=== PATIENT | female | born 1950 | race Caucasian/White ===

== ENCOUNTER 2021-07-29 16:35 | Inpatient (IN) | payer MEDICARE, OTHER ==
[~2021-07-29] VITALS: Ht 152.4 cm; Wt 45.4 kg
[~2021-07-29 16:35] MED LIST: ALBU8HFA4 IH; FLUT1DIS28 IH; HYDROCHLOROTHIAZIDE PO; TIOT18CA4 IH
[2021-07-29] MEDS ORDERED: ALBUTEROL SULFATE 2.5 MG/3 ML NEBU NEB ONE (17:00)
[2021-07-29] MEDS ORDERED: IPRATROPIUM BROMIDE 0.5 MG/2.5 ML NEBU NEB ONE (17:00)
[2021-07-29 17:05] LABS: MEAN CORPUSCULAR HEMOGLOBIN 28.2 uug (24.7-32.8); MEAN CORPUSCULAR VOLUME 86.8 fL (75.5-95.3); PLATELET COUNT (AUTO) 369 K/uL (179-408)
[2021-07-29] MEDS ORDERED: ALBUTEROL SULFATE 2.5 MG/ 0.5 ML NEBU ONE (17:05)
[2021-07-29] MEDS ORDERED: IPRATROPIUM BROMIDE 0.5 MG/2.5 ML NEBU ONE (17:06)
[2021-07-29 17:13] LABS: CARBON DIOXIDE 32 mmol/L (21-32); CHLORIDE 105 mmol/L (98-107); CREATININE 1.1 mg/dL (0.6-1.3); GLUCOSE 110 mg/dL (74-106); POTASSIUM 3.6 mmol/L (3.5-5.1); UREA NITROGEN, BLOOD 23 mg/dL (7-18)
[2021-07-29 17:26] LABS: ALANINE AMINOTRANSFERASE 19 U/L (14-59); ALKALINE PHOSPHATASE 94 U/L (50-136); ASPARTATE AMINOTRANSFERASE 18 U/L (15-37); BILIRUBIN,DIRECT < 0.1 mg/dL (0.0-0.2); BILIRUBIN,TOTAL 0.2 mg/dL (0.2-1.0); TOTAL PROTEIN, SERUM 6.9 g/dL (6.4-8.2)
[2021-07-29] MEDS ORDERED: HYDROCHLOROTHIAZIDE 25 MG TABLET ONE (17:30)
[2021-07-29] MEDS ORDERED: HYDROCHLOROTHIAZIDE 25 MG TABLET PO ONE (17:30)
[2021-07-29] MEDS ORDERED: ASPIRIN 325 MG TABLET ONE (17:58)
[2021-07-29] MEDS ORDERED: LABETALOL HCL 100 MG/20 ML VIAL IV ONE (18:00)
[2021-07-29] MEDS ORDERED: SWABABLE VALVE TRANSFER SET EA MC ONE (18:00)
[2021-07-29] MEDS ORDERED: IV NORMAL SALINE 250 ML IV ONE (18:00)
[2021-07-29] MEDS ORDERED: ASPIRIN 325 MG TABLET PO ONE (18:00)
[2021-07-29] MEDS ORDERED: IOHEXOL 350 100 ML INFUS..BTL ONE (18:00)
[2021-07-29] MEDS ORDERED: LABETALOL HCL 100 MG/20 ML VIAL ONE (18:12)
[2021-07-29] MEDS ORDERED: REMEDY ESSENTIAL ZINC PASTE 113 GM TP PRN (18:30)
[2021-07-29] MEDS ORDERED: MAGNESIUM HYDROXIDE 30 ML LIQUID UDC PO PRN (18:30)
[2021-07-29] MEDS ORDERED: ACETAMINOPHEN 325 MG TABLET PO PRN (18:30)
[2021-07-29] MEDS ORDERED: ONDANSETRON 4 MG/2 ML VIAL IV PRN (18:30)
--- NOTE | 2021-07-29 19:15 | NUR ---
RECEIVED REPORT FROM JAVIER DIEZ
--- NOTE | 2021-07-29 19:30 | NUR ---
Patient is sleeping, NAD noted
--- NOTE | 2021-07-29 20:31 | NUR ---
Called for report. Mahsa DIEZ will call back
--- NOTE | 2021-07-29 20:42 | NUR ---
report given to Mahsa DIEZ
[2021-07-29] MEDS ORDERED: levoFLOXacin 500 MG/D5W 500 MG in PREMIXED 1 EACH IV SCH (21:00)
--- NOTE | 2021-07-29 21:49 | NUR ---
Pt. admitted to TELE room 308 , under care of Latosha Dorman EP SPECIALIST Belongs List completed Mahsa RN aware of patient's arrival
--- NOTE | 2021-07-29 22:00 | NUR ---
Patient Admitted to telemetry with diagnosis COPD exacerbation and NSTEMI. Patient denies any chest pain or SOB. Noted with minimal SOB at exertion when ambulating and slight wheezing at auscultation. Patient is a good historian, AAO x4. She is homeless and currently living at [facility] in [place]. Patient has a contract to live there for the next 3 months. IV to left AC in place, patent and intact. All needs attended.
[2021-07-29 22:39] VITALS: BP 143/77
[2021-07-29] MEDS: methylPREDNISolone SOD SUCC 40 MG/ML VIAL IV SCH (22:53)
[2021-07-30 00:23] VITALS: BP 137/87
[2021-07-30] MEDS ORDERED: levoFLOXacin 500 MG/D5W 100 ML ONE (01:30)
[2021-07-30] MEDS: IPRATROPIUM BROMIDE 0.5 MG/2.5 ML NEBU NEB SCH ×4 (01:38→19:34)
[2021-07-30] MEDS: ALBUTEROL SULFATE 2.5 MG/3 ML NEBU NEB SCH ×4 (01:38→19:34)
[2021-07-30 04:41] VITALS: BP 144/85
[2021-07-30] MEDS: methylPREDNISolone SOD SUCC 40 MG/ML VIAL IV SCH ×3 (06:06→20:20)
[2021-07-30 07:26] LABS: HEMATOCRIT 39.1 % (31.2-41.9); MEAN CORPUSCULAR HEMOGLOBIN 28.7 uug (24.7-32.8); MEAN CORPUSCULAR VOLUME 85.1 fL (75.5-95.3); PLATELET COUNT (AUTO) 348 K/uL (179-408)
[2021-07-30 07:38] LABS: CREATININE 1.1 mg/dL (0.6-1.3); MAGNESIUM 1.9 mg/dL (1.8-2.4); PHOSPHOROUS 3.5 mg/dL (2.5-4.9); POTASSIUM 4.9 mmol/L (3.5-5.1)
[2021-07-30] MEDS: PANTOPRAZOLE SODIUM 40 MG VIAL IV SCH (08:39)
[2021-07-30] MEDS: FLUTICASONE/VILANTEROL 1 EACH BLST.W.DEV INH SCH (08:40)
[2021-07-30] MEDS ORDERED: HYDROCHLOROTHIAZIDE PO SCH (09:00)
[2021-07-30] MEDS ORDERED: FLUTICASONE/SALMETEROL 250/50 INHALER IH SCH (09:00)
[2021-07-30] MEDS ORDERED: HYDR25TA4 PO (09:42)
[2021-07-30 11:07] VITALS: BP 129/85
[2021-07-30] MEDS: HYDROCHLOROTHIAZIDE 25 MG TABLET PO SCH (11:07)
[2021-07-30 16:00] VITALS: BP 120/80
--- NOTE | 2021-07-30 18:42 | NUR ---
patient is alert, oriented x3, verbally responsive, no sob, resp even nonlabored, no acute distress noted. no events noted during shift
[2021-07-30 19:42] VITALS: BP 133/72
--- NOTE | 2021-07-30 20:03 | NUR ---
Patient in bed alert x4.No acute distress noted. On Ra.Iv patent and intact on left AC 20g .Adm. IV ATB as ordered ,no a/r noted.Ambulates to bathroom.Voided well. Safety measures in place. Call light with in reach.
[2021-07-30] MEDS ORDERED: levoFLOXacin 750MG/D5W 150 ML IV SCH (22:00)
[2021-07-31] MEDS: IPRATROPIUM BROMIDE 0.5 MG/2.5 ML NEBU NEB SCH ×3 (01:12→13:35)
[2021-07-31] MEDS: ALBUTEROL SULFATE 2.5 MG/3 ML NEBU NEB SCH ×3 (01:13→13:35)
[2021-07-31 04:00] VITALS: BP 148/81
[2021-07-31 08:28] VITALS: BP 136/76
[2021-07-31] MEDS: HYDROCHLOROTHIAZIDE 25 MG TABLET PO SCH (08:40)
[2021-07-31] MEDS: PANTOPRAZOLE SODIUM 40 MG VIAL IV SCH (08:40)
[2021-07-31] MEDS: methylPREDNISolone SOD SUCC 40 MG/ML VIAL IV SCH (08:40)
--- NOTE | 2021-07-31 09:47 | NUR ---
awake in bed, watching tv oriented x4, no resp distress on room air. denies chest pain. iv access intact no ss of infiltration or phlebitis. no complaints call light in reach. needs attended.
[2021-07-31 11:37] VITALS: BP 137/77
[2021-07-31] MEDS: FLUTICASONE/VILANTEROL 1 EACH BLST.W.DEV INH SCH (11:42)
[2021-07-31] MEDS ORDERED: METH4TAB3 PO (11:55)
[2021-07-31] MEDS ORDERED: PANT20TA2 PO (11:55)
[2021-07-31] MEDS ORDERED: LEVO500T90 PO (11:55)
[2021-07-31] MEDS ORDERED: FLUT1BLS INH (11:55)
[2021-07-31] MEDS ORDERED: ATOR20TA PO (11:55)
--- NOTE | 2021-07-31 14:05 | NUR ---
discharge order in place patient excited to go home, does not want to wait for ss for resources. states she has them at her hotel, along with hh set up by pcp there per cm. discharge instructions relayed stated understanding. iv access removed. cm will arrange transportation.
--- NOTE | 2021-07-31 16:22 | NUR ---
discharged in stable condition with all her personal belongings.
[2021-07-31 16:23] VITALS: BP 110/70
[2021-07-31] MEDS ORDERED: GUAIFENESIN LA 600 MG TABLET.SA PO SCH (21:00)
== END 2021-07-31 15:05 | disposition home health service (06) | DRG 190 ==
LOC: ER 16:37 → TELE3 20:47 → MEDSURG3 07-30 15:19
PROVIDERS: ADMIT Nurse Practitioner Acute Care; ATTEND Nurse Practitioner Acute Care
DX: J44.1 Chronic obstructive pulmonary disease with (acute) exacerbation (principal); J96.01 Acute respiratory failure with hypoxia; I21.A1 Myocardial infarction type 2; J15.9 Unspecified bacterial pneumonia; J44.0 Chronic obstructive pulmonary disease with (acute) lower respiratory infection; Z59.00 Homelessness unspecified; Z20.822 Contact with and (suspected) exposure to COVID-19; E78.5 Hyperlipidemia, unspecified; I10 Essential (primary) hypertension; I16.0 Hypertensive urgency; M41.9 Scoliosis, unspecified; R73.9 Hyperglycemia, unspecified; Z87.891 Personal history of nicotine dependence
CPT/HCPCS: 36415; 71045; 71275; 83605; 83735; 84100; 84484; 85025; 93005; 94640; A4663; C9113; G0378; J1956; J2920; J3490; J3590; Q9967

== ENCOUNTER 2022-03-02 13:12 | Inpatient (IN) | payer MEDICARE, OTHER ==
[~2022-03-02] VITALS: Ht 152.4 cm; Wt 45.4 kg
[~2022-03-02 13:12] MED LIST changes: +ATOR20TA PO; +FLUT1BLS INH; +HYDR25TA4 PO; -HYDROCHLOROTHIAZIDE PO; +LEVO500T90 PO; +METH4TAB3 PO; +PANT20TA2 PO
[2022-03-02] MEDS ORDERED: methylPREDNISolone SOD SUCC 125 MG/2 ML VIAL IV ONE (13:30)
[2022-03-02] MEDS ORDERED: IPRATROPIUM BROMIDE 0.5 MG/2.5 ML NEBU NEB ONE (13:30)
[2022-03-02] MEDS ORDERED: ALBUTEROL SULFATE 2.5 MG/3 ML NEBU NEB ONE (13:30)
[2022-03-02 13:54] LABS: HEMATOCRIT 41.3 % (31.2-41.9); MEAN CORPUSCULAR HEMOGLOBIN 29.5 uug (24.7-32.8); MEAN CORPUSCULAR VOLUME 89.5 fL (75.5-95.3); PLATELET COUNT (AUTO) 225 K/uL (179-408)
[2022-03-02] MEDS ORDERED: methylPREDNISolone SOD SUCC 125 MG/2 ML VIAL ONE (13:59)
[2022-03-02] MEDS ORDERED: IPRATROPIUM BROMIDE 0.5 MG/2.5 ML NEBU ONE (14:00)
[2022-03-02] MEDS ORDERED: ALBUTEROL SULFATE 2.5 MG/3 ML NEBU ONE (14:00)
[2022-03-02 14:12] LABS: CARBON DIOXIDE 30 mmol/L (21-32); CHLORIDE 105 mmol/L (98-107); CREATININE 0.8 mg/dL (0.6-1.3); GLUCOSE 123 mg/dL (74-106); POTASSIUM 3.6 mmol/L (3.5-5.1); UREA NITROGEN, BLOOD 21 mg/dL (7-18)
[2022-03-02 14:25] LABS: ALANINE AMINOTRANSFERASE 14 U/L (14-59); ALKALINE PHOSPHATASE 90 U/L (50-136); ASPARTATE AMINOTRANSFERASE 12 U/L (15-37); BILIRUBIN,DIRECT 0.1 mg/dL (0.0-0.2); BILIRUBIN,TOTAL 0.2 mg/dL (0.2-1.0); TOTAL PROTEIN, SERUM 7.1 g/dL (6.4-8.2)
[2022-03-02] MEDS ORDERED: ASPIRIN 81 MG TAB.CHEW PO ONE (16:00)
[2022-03-02] MEDS ORDERED: ASPIRIN 81 MG TAB.CHEW ONE (16:17)
[2022-03-02] MEDS ORDERED: FUROSEMIDE 20 MG/2 ML VIAL IV ONE (17:00)
[2022-03-02] MEDS ORDERED: FUROSEMIDE 20 MG/2 ML VIAL ONE (17:18)
[2022-03-02] MEDS ORDERED: ALBUTEROL SULFATE 2.5 MG/ 0.5 ML NEBU NEB PRN (22:15)
[2022-03-02] MEDS ORDERED: MORPHINE SULFATE 2 MG/1 ML DISP.SYRIN IV PRN (22:15)
[2022-03-02] MEDS ORDERED: ONDANSETRON 4 MG/2 ML VIAL IV PRN (22:15)
--- NOTE | 2022-03-02 22:38 | NUR ---
Report given to Dong DIEZ tele.
[2022-03-02 23:00] VITALS: BP 149/92
[2022-03-02] MEDS ORDERED: METOPROLOL TARTRATE 25 MG TABLET PO ONE (23:00)
--- NOTE | 2022-03-02 23:00 | NUR ---
Received report from Santiago DIEZ (ER). Pt was admitted to tele @ 2300. Pt is A&O x4 and is cooperative. Pt is homeless and, when discharged, would like to go back to where her tent is. Pt is currently on Rm Air and doesn't want to be on O2 unless needed. ST on tele monitor. Pt is vaccinated for COVID-19 and Flu. Will continue to monitor.
[2022-03-03] MEDS: ATORVASTATIN 20 MG TABLET PO SCH ×2 (00:37→20:37)
[2022-03-03 01:41] VITALS: BP 142/92
[2022-03-03 06:05] LABS: HEMATOCRIT 36.7 % (31.2-41.9); MEAN CORPUSCULAR HEMOGLOBIN 28.9 uug (24.7-32.8); PLATELET COUNT (AUTO) 304 K/uL (179-408)
[2022-03-03] MEDS: PANTOPRAZOLE SODIUM 40 MG TABLET.DR PO SCH (06:15)
[2022-03-03 06:28] LABS: BILIRUBIN,TOTAL 0.1 mg/dL (0.2-1.0); MAGNESIUM 1.9 mg/dL (1.8-2.4); PHOSPHOROUS 3.8 mg/dL (2.5-4.9); POTASSIUM 3.9 mmol/L (3.5-5.1); TOTAL PROTEIN, SERUM 6.3 g/dL (6.4-8.2)
[2022-03-03 06:29] LABS: THYROID STIMULATING HORMONE 0.424 mIU/mL (0.358-3.740)
--- NOTE | 2022-03-03 06:47 | NUR ---
End of shift Note: Pt is A&Ox4 and is cooperative. Currently ST on tele. Pt on no O2. Pt is continent. Vitals are WNL. Safety measures implemented.
[2022-03-03] MEDS: ASPIRIN EC 81 MG TABLET.DR PO SCH (08:35)
[2022-03-03] MEDS: HYDROCHLOROTHIAZIDE 25 MG TABLET PO SCH (08:36)
[2022-03-03] MEDS: ENOXAPARIN SODIUM 40 MG/0.4 ML DISP.SYRIN SQ SCH (08:37)
[2022-03-03] MEDS: methylPREDNISolone SOD SUCC 40 MG/ML VIAL IV SCH ×3 (08:41→21:41)
[2022-03-03] MEDS: FLUTICASONE/VILANTEROL 1 EACH BLST.W.DEV INH SCH (09:11)
[2022-03-03] MEDS: ALBUTEROL SULFATE 2.5 MG/3 ML NEBU NEB PRN (09:21)
[2022-03-03] MEDS: IPRATROPIUM BROMIDE 0.5 MG/2.5 ML NEBU NEB PRN (09:21)
[2022-03-03 11:36] VITALS: BP 137/78
--- NOTE | 2022-03-03 13:59 | NUR ---
Social Work consult was requested on the medical floor for homeless resources. Patient is a 72-year-old female admitted to the hospital for COPD exacerbation, elevated troponin. Patient presents with anxious mood and congruent affect. Patient states she does not have a primary contact. Patient states she is currently homeless and working with Lelia Perez from [facility] [address] [facility] [place] [address] ([phone]) to get into [facility]. OSVALDO provided the patient with homeless resources for [facility] [address] [place] [address] ([phone]) and [facility] [address] [place] [address] ([phone]). OSVALDO gave resources for [facility] [address] [address]. Patient was appreciative of the resources but states she wants to find something more permanent than a retirement. Patient signed the homeless waiver, and a copy was placed in the patients chart. Patient denies a history of substance abuse. There is no toxicology report. Patient denies a history of psychiatric diagnosis. Patient denies suicidal or homicidal ideation. Patient states her plan for discharge is to continue working with [facility] and [facility] to get permanent housing at [facility]. OSVALDO referred patient to family service caseworkerJustin for possible SNF placement.
[2022-03-03 15:15] VITALS: BP 125/72
[2022-03-03] MEDS: GUAIFENESIN/DEXTROMETHORPHAN 5 ML UDC PO PRN (17:00)
--- NOTE | 2022-03-03 19:20 | NUR ---
Received Pt from day shift. Pt is A&Ox3. Denies pain at this time. Pt on Rm Air. SR-ST on tele. Pt is continent but has yet to have a bowel movement. Call light within reach. Safety measures in place. Will continue to monitor.
[2022-03-03 20:00] VITALS: BP 147/82
[2022-03-03] MEDS: DOCUSATE SODIUM 250 MG CAPSULE PO SCH (20:37)
[2022-03-04] VITALS: BP 179/91
[2022-03-04] MEDS: GUAIFENESIN/DEXTROMETHORPHAN 5 ML UDC PO PRN ×2 (00:44→11:02)
[2022-03-04] MEDS ORDERED: hydrALAZINE HCL 20 MG/1 ML VIAL IV PRN (01:00)
--- NOTE | 2022-03-04 01:12 | NUR ---
0000 vitals showed BP at 179/91. Contacted ENVIRONMENTAL COMPLIANCE INSPECTOR Dr. Rodriguez and attained an order of hydralazine 5 mg IV PRN for SBP >160. Administered hydralazine 5 mg IV at 0110. Safety measures in place. Will continue to monitor.
[2022-03-04 04:01] VITALS: BP 141/85
[2022-03-04] MEDS: methylPREDNISolone SOD SUCC 40 MG/ML VIAL IV SCH ×3 (06:04→21:17)
[2022-03-04] MEDS: PANTOPRAZOLE SODIUM 40 MG TABLET.DR PO SCH (06:04)
--- NOTE | 2022-03-04 06:30 | NUR ---
End of shift Note: Pt is A&Ox4 and is cooperative. Currently ST on tele. Pt on no O2. Pt is continent. Will inform Day shift about monitoring of BP and the usage of hydralazine for lowering elevated BP. Safety measures implemented.
[2022-03-04] MEDS: ASPIRIN EC 81 MG TABLET.DR PO SCH (08:07)
[2022-03-04] MEDS: HYDROCHLOROTHIAZIDE 25 MG TABLET PO SCH (08:07)
[2022-03-04] MEDS: ENOXAPARIN SODIUM 40 MG/0.4 ML DISP.SYRIN SQ SCH (08:08)
[2022-03-04] MEDS: FLUTICASONE/VILANTEROL 1 EACH BLST.W.DEV INH SCH (08:08)
[2022-03-04 11:29] VITALS: BP 166/95
[2022-03-04 15:18] VITALS: BP 145/83
[2022-03-04] MEDS: ACETAMINOPHEN 325 MG TABLET PO PRN (15:28)
[2022-03-04] MEDS ORDERED: levoFLOXacin 500 MG/D5W 500 MG in PREMIXED 1 EACH IV SCH (16:30)
[2022-03-04 20:17] VITALS: BP 151/93
[2022-03-04] MEDS: DOCUSATE SODIUM 250 MG CAPSULE PO SCH (21:16)
[2022-03-04] MEDS: ATORVASTATIN 20 MG TABLET PO SCH (21:16)
[2022-03-05 05:48] VITALS: BP 141/85
[2022-03-05] MEDS: methylPREDNISolone SOD SUCC 40 MG/ML VIAL IV SCH ×4 (05:49→22:30)
[2022-03-05] MEDS: PANTOPRAZOLE SODIUM 40 MG TABLET.DR PO SCH (06:24)
[2022-03-05 07:27] LABS: HEMATOCRIT 38.3 % (31.2-41.9); MEAN CORPUSCULAR HEMOGLOBIN 28.9 uug (24.7-32.8); MEAN CORPUSCULAR VOLUME 88.7 fL (75.5-95.3); PLATELET COUNT (AUTO) 294 K/uL (179-408)
[2022-03-05 07:41] LABS: CREATININE 1.3 mg/dL (0.6-1.3); PHOSPHOROUS 4.3 mg/dL (2.5-4.9); POTASSIUM 4.4 mmol/L (3.5-5.1)
[2022-03-05] MEDS: ASPIRIN EC 81 MG TABLET.DR PO SCH (08:12)
[2022-03-05] MEDS: FLUTICASONE/VILANTEROL 1 EACH BLST.W.DEV INH SCH (08:12)
[2022-03-05] MEDS: HYDROCHLOROTHIAZIDE 25 MG TABLET PO SCH (08:12)
[2022-03-05] MEDS: ENOXAPARIN SODIUM 40 MG/0.4 ML DISP.SYRIN SQ SCH (08:19)
[2022-03-05] MEDS: GUAIFENESIN/DEXTROMETHORPHAN 5 ML UDC PO PRN (10:26)
[2022-03-05] MEDS ORDERED: DILTIAZEM HCL CD 120 MG CAP.SR.24H PO SCH (11:00)
[2022-03-05 11:08] VITALS: BP 153/86
[2022-03-05] MEDS: ACETAMINOPHEN 325 MG TABLET PO PRN ×2 (15:08→20:36)
[2022-03-05] MEDS ORDERED: LEVOFLOXACIN/D5W 250 MG in PREMIX 1 EA IV SCH (16:00)
[2022-03-05 16:41] VITALS: BP 146/91
[2022-03-05] MEDS ORDERED: SIMETHICONE 80 MG TAB.CHEW PO PRN (16:45)
[2022-03-05 20:33] VITALS: BP 151/84
[2022-03-05] MEDS: ATORVASTATIN 20 MG TABLET PO SCH (20:36)
[2022-03-05] MEDS: DOCUSATE SODIUM 250 MG CAPSULE PO SCH (20:36)
[2022-03-05] MEDS: ALBUTEROL SULFATE 2.5 MG/3 ML NEBU NEB PRN (21:33)
[2022-03-05] MEDS: IPRATROPIUM BROMIDE 0.5 MG/2.5 ML NEBU NEB PRN (21:33)
[2022-03-06 04:47] VITALS: BP 155/83
[2022-03-06] MEDS: methylPREDNISolone SOD SUCC 40 MG/ML VIAL IV SCH ×2 (05:12→13:18)
[2022-03-06] MEDS: PANTOPRAZOLE SODIUM 40 MG TABLET.DR PO SCH (06:24)
[2022-03-06] MEDS: ASPIRIN EC 81 MG TABLET.DR PO SCH (08:04)
[2022-03-06] MEDS: FLUTICASONE/VILANTEROL 1 EACH BLST.W.DEV INH SCH (08:05)
[2022-03-06] MEDS: ENOXAPARIN SODIUM 40 MG/0.4 ML DISP.SYRIN SQ SCH (08:05)
[2022-03-06 08:23] VITALS: BP 145/91
[2022-03-06] MEDS ORDERED: DILTIAZEM HCL CD 180 MG CAP.SR.24H PO SCH (09:00)
[2022-03-06] MEDS ORDERED: DILT180C66 PO (12:43)
[2022-03-06] MEDS ORDERED: LEVO500T90 PO (12:43)
[2022-03-06] MEDS ORDERED: DOCU250C14 PO (12:43)
[2022-03-06] MEDS ORDERED: METH4TAB3 PO (12:43)
[2022-03-06] MEDS ORDERED: GUAI5SYR PO (12:43)
[2022-03-06] MEDS ORDERED: MULT-594 PO (12:43)
[2022-03-06] MEDS ORDERED: ALBU2.5V7 NEB (12:43)
[2022-03-06] MEDS ORDERED: SIME80TA16 PO (12:43)
[2022-03-06] MEDS ORDERED: ASPI-618 PO (12:43)
[2022-03-06 13:07] LABS: *BILIRUBIN,URIN NEGATIVE (NEGATIVE); *BLOOD, URINE NEGATIVE (NEGATIVE); *CLARITY,URINE CLEAR (CLEAR); *COLOR,URINE YELLOW (YELLOW); *KETONES,URINE NEGATIVE (NEGATIVE); *UROBILINOGEN,URINE 0.2 E.U./dl (NORMAL); LEUKOCYTE ESTERASE ,URINE TRACE (NEGATIVE); NITRITE, URINE NEGATIVE (NEGATIVE); UGLUCOSE NEGATIVE (NEGATIVE)
--- NOTE | 2022-03-06 14:33 | NUR ---
dc orders received noted and carried out.dc heplock per md orders.dc instruction and rn report given to the [facility] pt left the facility via ambulances in stable condition
[2022-03-06 18:38] LABS: *CREATININE,URINE 18.2 mg/dL (30-125); *URINE TOTAL PROTEIN RANDOM < 6.0 mg/dL (<150/24HR)
[2022-03-06 19:23] LABS: RBC,URINE 0-3 /HPF (0-3)
[2022-03-06 19:24] LABS: BACTERIA,URINE NONE SEEN /HPF (NONE SEEN); SQUAMOUS EPITHELIAL CELL,UR NONE SEEN /HPF (NONE SEEN)
== END 2022-03-06 14:40 | DRG 190 ==
LOC: ER 13:12 → TELE3 22:41 → MEDSURG3 03-06 08:30
PROVIDERS: ADMIT Internal Medicine; ATTEND Internal Medicine
DX: J44.1 Chronic obstructive pulmonary disease with (acute) exacerbation (principal); I21.A1 Myocardial infarction type 2; J96.01 Acute respiratory failure with hypoxia; N17.0 Acute kidney failure with tubular necrosis; J44.0 Chronic obstructive pulmonary disease with (acute) lower respiratory infection; E78.5 Hyperlipidemia, unspecified; I10 Essential (primary) hypertension; I70.0 Atherosclerosis of aorta; J20.9 Acute bronchitis, unspecified; I25.2 Old myocardial infarction; I25.10 Atherosclerotic heart disease of native coronary artery without angina pectoris; Z87.01 Personal history of pneumonia (recurrent); Z87.891 Personal history of nicotine dependence; Z59.00 Homelessness unspecified; K21.9 Gastro-esophageal reflux disease without esophagitis; R73.9 Hyperglycemia, unspecified; L98.8 Other specified disorders of the skin and subcutaneous tissue; J98.4 Other disorders of lung; L98.9 Disorder of the skin and subcutaneous tissue, unspecified
CPT/HCPCS: 36415; 71045; 83735; 84100; 84156; 84300; 84443; 84484; 85025; 87400; 93005; 94640; 94664; A4663; G0378; J0360; J1650; J1940; J1956; J2405; J2920; J2930; J3590

== ENCOUNTER 2022-04-25 13:20 | Inpatient (IN) | payer MEDICARE, OTHER ==
[~2022-04-25] VITALS: Ht 160 cm; Wt 59.0 kg
[~2022-04-25 13:20] MED LIST changes: +ALBU2.5V7 NEB; +ASPI-618 PO; +DILT180C66 PO; +DOCU250C14 PO; -FLUT1DIS28 IH; +GUAI5SYR PO; -HYDR25TA4 PO; +MULT-594 PO; +SIME80TA16 PO; -TIOT18CA4 IH
[2022-04-25] MEDS ORDERED: BOOST (13:34)
[2022-04-25] MEDS ORDERED: ACET-2154 PO (13:34)
[2022-04-25] MEDS ORDERED: ATOR20TA PO (13:34)
[2022-04-25] MEDS ORDERED: AZIT250T13 PO (13:34)
[2022-04-25] MEDS ORDERED: ASPI81TA31 PO (13:34)
[2022-04-25] MEDS ORDERED: FEXO-25 PO (13:34)
[2022-04-25] MEDS ORDERED: CEFTRIAXONE /D5W 50ML IVPB **ER PYXIS IV ONE (13:42)
[2022-04-25] MEDS ORDERED: CEFTRIAXONE 1 G in IV DEXTROSE 5% 50 ML IV ONE (13:45)
[2022-04-25] MEDS ORDERED: IV NORMAL SALINE 500 ML BAG IV ONE (13:45)
[2022-04-25] MEDS ORDERED: ALBUTEROL SULFATE 2.5 MG/3 ML NEBU NEB ONE (13:45)
[2022-04-25] MEDS ORDERED: IPRATROPIUM BROMIDE 0.5 MG/2.5 ML NEBU NEB ONE (13:45)
[2022-04-25] MEDS ORDERED: AZITHROMYCIN IV 500 MG in IV DEXTROSE 5% 250 ML IV ONE (13:45)
[2022-04-25] MEDS ORDERED: ALBUTEROL SULFATE 2.5 MG/3 ML NEBU ONE (14:07)
[2022-04-25] MEDS ORDERED: IPRATROPIUM BROMIDE 0.5 MG/2.5 ML NEBU ONE (14:07)
[2022-04-25 14:16] LABS: HEMATOCRIT 38.3 % (31.2-41.9); MEAN CORPUSCULAR HEMOGLOBIN 28.7 uug (24.7-32.8); MEAN CORPUSCULAR VOLUME 89.4 fL (75.5-95.3); PLATELET COUNT (AUTO) 261 K/uL (179-408)
[2022-04-25 14:24] LABS: ABG BASE EXCESS 2.6 mmol/L; ABG HCO3 27.5 mmol/L; ABG PCO2 43.5 mmHg (35.0-45.0); ABG PH 7.418 (7.350-7.450); ABG PO2 74.3 mmHg (75.0-100.0); ABG SITE LEFT BRACHIAL; COHb 0.5 % (0.5-1.5); MetHb 0.1 % (0.0-1.5); O2Hb 94.7 % (94.0-97.0); VENT MODE Nasal Cannula
[2022-04-25] MEDS ORDERED: AZITHROMYCIN 500MG/ D5W 250ML IVPB **ER PYXIS ONLY IV ONE (14:28)
[2022-04-25 14:31] LABS: CARBON DIOXIDE 33 mmol/L (21-32); CHLORIDE 104 mmol/L (98-107); CREATININE 0.8 mg/dL (0.6-1.3); GLUCOSE 96 mg/dL (74-106); POTASSIUM 4.4 mmol/L (3.5-5.1); UREA NITROGEN, BLOOD 27 mg/dL (7-18)
[2022-04-25] MEDS ORDERED: MORPHINE SULFATE 2 MG/1 ML DISP.SYRIN IVP PRN (16:45)
[2022-04-25] MEDS ORDERED: ONDANSETRON 4 MG/2 ML VIAL IV PRN (16:45)
[2022-04-25] MEDS ORDERED: ACETAMINOPHEN 325 MG TABLET PO PRN (16:45)
[2022-04-25] MEDS ORDERED: hydrALAZINE HCL 20 MG/1 ML VIAL IV PRN (16:45)
[2022-04-25] MEDS ORDERED: ALBUTEROL SULFATE 8 GM HFA.AER.AD IH PRN (16:45)
--- NOTE | 2022-04-25 17:12 | NUR ---
Room assignment 309
--- NOTE | 2022-04-25 17:23 | NUR ---
Attempted to give report to RN. Stated that he is busy passing meds.
--- NOTE | 2022-04-25 17:31 | NUR ---
Patient eating dinner. No complaints at this time. Will continue to monitor
--- NOTE | 2022-04-25 17:55 | NUR ---
Gave report to RG Quiroga
[2022-04-25] MEDS ORDERED: ASPIRIN 81 MG TAB.CHEW PO ONE (18:30)
[2022-04-25] MEDS ORDERED: ALBUTEROL SULFATE 2.5 MG/3 ML NEBU NEB PRN (18:45)
--- NOTE | 2022-04-25 18:59 | NUR ---
Patient brought to room 309 accompanied by RN via bhargavi.
[2022-04-25 19:26] VITALS: BP 150/70
--- NOTE | 2022-04-25 19:30 | NUR ---
Received patient from ER via gurney, alert and oriented x4. In no acute distress. Sinus rhythm on tele HR 70. RAC IV access intact and patent. Routine admission care rendered, oriented to room, TV, BR and call light. Care plan initiated. Needs assessed and attended to.
[2022-04-25 20:00] VITALS: BP 150/77
[2022-04-25] MEDS ORDERED: CEFEPIME HCL 2 G in IV DEXTROSE 5% 100 ML IV SCH (21:00)
[2022-04-25] MEDS ORDERED: CEFEPIME HCL 1 G VIAL ONE (21:00)
[2022-04-25] MEDS: DOCUSATE SODIUM 250 MG CAPSULE PO SCH (21:04)
[2022-04-25] MEDS: HEPARIN SODIUM,PORCINE 5,000 UNITS/ML VIAL SQ SCH (21:05)
[2022-04-25] MEDS: GUAIFENESIN/DEXTROMETHORPHAN TAB.SR.12H PO SCH (21:45)
[2022-04-25] MEDS: methylPREDNISolone SOD SUCC 40 MG/ML VIAL IV SCH ×2 (21:56→22:00)
--- NOTE | 2022-04-25 21:56 | NUR ---
Solu-medrol administered
[2022-04-25] MEDS ORDERED: CEFEPIME HCL 1 G in IV DEXTROSE 5% 50 ML IV SCH (22:00)
[2022-04-25] MEDS ORDERED: GUAIFENESIN LA 600 MG TABLET.SA PO ONE (22:43)
[2022-04-26] VITALS: BP 144/79
[2022-04-26] MEDS ORDERED: IPRATROPIUM BROMIDE 0.5 MG/2.5 ML NEBU NEB SCH (01:30)
[2022-04-26 04:00] VITALS: BP 132/72
[2022-04-26] MEDS: methylPREDNISolone SOD SUCC 40 MG/ML VIAL IV SCH ×3 (06:32→23:13)
[2022-04-26] MEDS: PANTOPRAZOLE SODIUM 40 MG TABLET.DR PO SCH (06:32)
[2022-04-26 07:05] LABS: HEMATOCRIT 40.2 % (31.2-41.9); MEAN CORPUSCULAR HEMOGLOBIN 28.8 uug (24.7-32.8); MEAN CORPUSCULAR VOLUME 88.8 fL (75.5-95.3); PLATELET COUNT (AUTO) 263 K/uL (179-408)
--- NOTE | 2022-04-26 07:20 | NUR ---
RECEIVED PATIENT IN BED AWAKE ALERT AND ORIENTED DENIES PAIN OR DISCOMFORTS TELE IS SR AT THIS TIME.ON O2 AT 2L/M WITH NO SOB AT THIS TIME CALL LIGHTS AND PERSONAL BELONGINGS ARE WITHIN EASY REACH AT THIS TIME WILL CONTINUE TO OBSERVE.
[2022-04-26 07:25] LABS: BILIRUBIN,TOTAL 0.3 mg/dL (0.2-1.0); CREATININE 0.9 mg/dL (0.6-1.3); PHOSPHOROUS 4.3 mg/dL (2.5-4.9); POTASSIUM 4.4 mmol/L (3.5-5.1); TOTAL PROTEIN, SERUM 6.9 g/dL (6.4-8.2)
[2022-04-26] MEDS: IPRATROPIUM BROMIDE 0.5 MG/2.5 ML NEBU NEB SCH ×5 (07:32→20:00)
[2022-04-26] MEDS ORDERED: Medication Not On Formulary EA (Pantoprazole Sodium (Protonix) 1 TAB) PO SCH (09:00)
[2022-04-26] MEDS: HEPARIN SODIUM,PORCINE 5,000 UNITS/ML VIAL SQ SCH ×2 (09:09→20:25)
[2022-04-26] MEDS: ASPIRIN 81 MG TAB.CHEW PO SCH (09:32)
[2022-04-26] MEDS: DILTIAZEM HCL CD 180 MG CAP.SR.24H PO SCH (09:32)
[2022-04-26] MEDS: FLUTICASONE/VILANTEROL 1 EACH BLST.W.DEV INH SCH (09:41)
[2022-04-26] MEDS: GUAIFENESIN/DEXTROMETHORPHAN TAB.SR.12H PO SCH ×2 (09:44→21:29)
[2022-04-26 11:37] VITALS: BP 133/75
--- NOTE | 2022-04-26 15:00 | NUR ---
RESTING IN BED TOLERATED HAND HELD NEBULIZER ORDERED IV HEPLOCK RIGHT ANTECUBITAL IS VERY POSITIONAL OFFERED TO CHANGE TO A NEW ONE BUT PATIENT ADAMANTLY REFUSED STATED DOES NOT LIKE NEEDLES WILL CONTINUE TO OBSERVE.
[2022-04-26 16:00] VITALS: BP 127/72
--- NOTE | 2022-04-26 18:12 | NUR ---
PATIENT IS RESTING WITH O2 AT 2L/M BY NASAL CANULA WITH NO SOB NOT IN DISTRESS WILL CONTINUE TO OBSERVE.
[2022-04-26 20:00] VITALS: BP 142/75
[2022-04-26] MEDS: ATORVASTATIN 20 MG TABLET PO SCH (20:24)
[2022-04-26] MEDS: DOCUSATE SODIUM 250 MG CAPSULE PO SCH (20:24)
[2022-04-27] VITALS: BP 135/76
[2022-04-27] MEDS: IPRATROPIUM BROMIDE 0.5 MG/2.5 ML NEBU NEB SCH ×4 (00:49→19:13)
[2022-04-27 04:00] VITALS: BP 120/60
[2022-04-27] MEDS: methylPREDNISolone SOD SUCC 40 MG/ML VIAL IV SCH ×3 (06:40→21:35)
[2022-04-27] MEDS: PANTOPRAZOLE SODIUM 40 MG TABLET.DR PO SCH (06:40)
--- NOTE | 2022-04-27 07:08 | NUR ---
Patient slept well and remained stable the whole shift.
[2022-04-27] MEDS: DILTIAZEM HCL CD 180 MG CAP.SR.24H PO SCH (08:28)
[2022-04-27] MEDS: ASPIRIN 81 MG TAB.CHEW PO SCH (08:29)
[2022-04-27] MEDS: HEPARIN SODIUM,PORCINE 5,000 UNITS/ML VIAL SQ SCH ×2 (08:33→20:24)
[2022-04-27] MEDS: GUAIFENESIN/DEXTROMETHORPHAN TAB.SR.12H PO SCH ×2 (08:36→20:46)
[2022-04-27] MEDS: FLUTICASONE/VILANTEROL 1 EACH BLST.W.DEV INH SCH (09:02)
[2022-04-27 11:18] VITALS: BP 127/75
[2022-04-27 15:05] VITALS: BP 134/72
--- NOTE | 2022-04-27 16:42 | NUR ---
Pt. has been stable during the shift, No c/o pain. Able to make the need known. Ambulatory. call light within reach. All safety measure applied. Alert and oriented x4. Compliance with the care given. Will keep monitoring the patient.
[2022-04-27 20:00] VITALS: BP 128/78
--- NOTE | 2022-04-27 20:00 | NUR ---
NSG: Received patient lying in bed,alert and oriented x4,ambulatory. denies pain or sob at this time. patient is on 02 @ 2l/min via n/c. instructed patient call nurse for pain or assistance via call light. call light w/in reach.
[2022-04-27] MEDS: DOCUSATE SODIUM 250 MG CAPSULE PO SCH (20:23)
[2022-04-27] MEDS: ATORVASTATIN 20 MG TABLET PO SCH (20:23)
--- NOTE | 2022-04-28 | NUR ---
NSG: PATIENT RESTING IN BED COMFORTABLY. CONTINUE ON TELE MONITOR WHICH SHOWING SR 70-80. CALL LIGHT W/IN REACH.
[2022-04-28 00:03] VITALS: BP 150/75
[2022-04-28] MEDS: IPRATROPIUM BROMIDE 0.5 MG/2.5 ML NEBU NEB SCH ×3 (01:30→13:31)
[2022-04-28 04:00] VITALS: BP 140/74
[2022-04-28] MEDS: methylPREDNISolone SOD SUCC 40 MG/ML VIAL IV SCH ×2 (05:35→13:34)
--- NOTE | 2022-04-28 06:00 | NUR ---
NSG: Remained calm and cooperative with meds. sole-Medrol iv given via RN. Denies pain or sob at this time. continue on 02@2l/min via nc. call light w/in reach.
[2022-04-28] MEDS: PANTOPRAZOLE SODIUM 40 MG TABLET.DR PO SCH (06:10)
[2022-04-28] MEDS: ASPIRIN 81 MG TAB.CHEW PO SCH (08:18)
[2022-04-28] MEDS: DILTIAZEM HCL CD 180 MG CAP.SR.24H PO SCH (08:22)
[2022-04-28] MEDS: GUAIFENESIN/DEXTROMETHORPHAN TAB.SR.12H PO SCH (08:22)
[2022-04-28] MEDS: HEPARIN SODIUM,PORCINE 5,000 UNITS/ML VIAL SQ SCH (08:23)
[2022-04-28] MEDS: FLUTICASONE/VILANTEROL 1 EACH BLST.W.DEV INH SCH (08:23)
[2022-04-28] MEDS ORDERED: PRED20TA PO (09:26)
[2022-04-28 11:28] VITALS: BP 111/57
[2022-04-28 16:40] VITALS: BP 136/70
--- NOTE | 2022-04-28 16:47 | NUR ---
Pt. discharged to [facility]. Noted to be stable upon the discharge. Alert and oriented x4. IV line removed. Personal belonging returned to the patient and all necessary document signed. I called the receiving SNF and gave report to
== END 2022-04-28 16:51 | DRG 190 ==
LOC: ER 13:23 → TELE3 18:38
PROVIDERS: ADMIT Internal Medicine; ATTEND Internal Medicine
DX: J44.1 Chronic obstructive pulmonary disease with (acute) exacerbation (principal); I21.A1 Myocardial infarction type 2; J96.01 Acute respiratory failure with hypoxia; J45.901 Unspecified asthma with (acute) exacerbation; E11.9 Type 2 diabetes mellitus without complications; E78.5 Hyperlipidemia, unspecified; I10 Essential (primary) hypertension; I25.10 Atherosclerotic heart disease of native coronary artery without angina pectoris; I25.2 Old myocardial infarction; I48.91 Unspecified atrial fibrillation; M41.9 Scoliosis, unspecified; Z20.822 Contact with and (suspected) exposure to COVID-19; Z79.82 Long term (current) use of aspirin
CPT/HCPCS: 36415; 36600; 71045; 82803; 83605; 84100; 84484; 85025; 87040; 93005; 93307; 94640; G0378; J0456; J0692; J0696; J1644; J2920; J3590; J7040

== ENCOUNTER 2022-05-30 08:54 | Inpatient (IN) | payer MEDICARE, OTHER ==
[~2022-05-30] VITALS: Ht 160 cm; Wt 59.0 kg
[~2022-05-30 08:54] MED LIST changes: +ACET-2154 PO; -ASPI-618 PO; +ASPI81TA31 PO; +FEXO-25 PO; -LEVO500T90 PO; -METH4TAB3 PO; +PRED20TA PO
[2022-05-30] MEDS ORDERED: LIDOCAINE PATCH TP (09:30)
[2022-05-30] MEDS ORDERED: HYDR-3972 PO (09:30)
--- NOTE | 2022-05-30 09:34 | NUR ---
Dr Tierney at the bedside for MSE.
[2022-05-30 09:57] LABS: HEMATOCRIT 35.6 % (31.2-41.9); MEAN CORPUSCULAR HEMOGLOBIN 28.9 uug (24.7-32.8); PLATELET COUNT (AUTO) 299 K/uL (179-408)
[2022-05-30 10:06] LABS: CARBON DIOXIDE 37 mmol/L (21-32); CHLORIDE 103 mmol/L (98-107); CREATININE 0.6 mg/dL (0.6-1.3); GLUCOSE 117 mg/dL (74-106); POTASSIUM 4.1 mmol/L (3.5-5.1); UREA NITROGEN, BLOOD 33 mg/dL (7-18)
[2022-05-30 10:20] LABS: ALANINE AMINOTRANSFERASE 20 U/L (14-59); ALKALINE PHOSPHATASE 140 U/L (50-136); ASPARTATE AMINOTRANSFERASE 5 U/L (15-37); BILIRUBIN,DIRECT < 0.1 mg/dL (0.0-0.2); BILIRUBIN,TOTAL 0.3 mg/dL (0.2-1.0); TOTAL PROTEIN, SERUM 6.4 g/dL (6.4-8.2)
--- NOTE | 2022-05-30 10:20 | NUR ---
Breakfast tray provided, pt ate small amount.
[2022-05-30 11:07] LABS: *BILIRUBIN,URIN NEGATIVE (NEGATIVE); *BLOOD, URINE NEGATIVE (NEGATIVE); *CLARITY,URINE CLEAR (CLEAR); *COLOR,URINE YELLOW (YELLOW); *KETONES,URINE NEGATIVE (NEGATIVE); *UROBILINOGEN,URINE 0.2 E.U./dl (NORMAL); LEUKOCYTE ESTERASE ,URINE 1+ (NEGATIVE); NITRITE, URINE NEGATIVE (NEGATIVE); UGLUCOSE NEGATIVE (NEGATIVE)
--- NOTE | 2022-05-30 12:25 | NUR ---
RECEIVED PATIENT 72 YEARS OLD FEMALE FROM ED BY BETO TO ROOM 306 WITH DX OF COPD EXERCEBATION PLACED INTO BED FIXED AND MADE COMFORTABLE PATIENT IS ALERT AND ORIENTED AND ASSISTED WITH ADMISSION LINDAE ORIENTED TO ROOM AND FACILITY PROTOCOL SHE IS ON O2 AT 2L/M BY NASAL CANULA WITH NO SOB MADE COMFORTABLE CALLED DR GALARZA AND NOTIFIED HIM THAT PATIENT IS HERE AWAITING FOR ORDERS.
--- NOTE | 2022-05-30 12:30 | NUR ---
Pt transfer via gurney to room 306 tele.
[2022-05-30 12:31] VITALS: BP 129/77
[2022-05-30] MEDS ORDERED: HYDROCODONE/APAP 5-325MG TABLET PO PRN (13:45)
[2022-05-30] MEDS ORDERED: ACETAMINOPHEN 325 MG TABLET PO PRN (13:45)
[2022-05-30] MEDS ORDERED: ZOLPIDEM 5 MG TABLET PO PRN (13:45)
[2022-05-30] MEDS ORDERED: ONDANSETRON 4 MG/2 ML VIAL IV PRN (13:45)
--- NOTE | 2022-05-30 14:15 | NUR ---
DR GALARZA HERE AND SEEN PATIENT WITH NEW ORDERS AND NOTED.
[2022-05-30 16:00] VITALS: BP 133/74
[2022-05-30] MEDS ORDERED: SIME80TA15 PO (17:20)
--- NOTE | 2022-05-30 18:00 | NUR ---
RESTING DENIES DISCOMFORTS AT THIS TIME WILL CONTINUE TO OBSERVE.
--- NOTE | 2022-05-30 19:30 | NUR ---
Received patient lying in bed. AAOX4. In no apparent distress. O2 at 2LPM via NC in placed. O2 sat at 97% at this time. IV site on left hand intact and patent. NSR on tele with HR of 82/min. Needs assessed and attended to. Safety measure initiated and call light within reached.
[2022-05-30 20:00] VITALS: BP 155/76
[2022-05-30] MEDS: REMEDY ESSENTIAL ZINC PASTE 113 GM TOP SCH (20:19)
[2022-05-30] MEDS: DOCUSATE SODIUM 100 MG CAPSULE PO SCH (20:19)
--- NOTE | 2022-05-30 20:37 | NUR ---
Patient reported she has occasional moist cough and able to expectorate phlegm at times. Dr. Moreno informed and with order to start patient on breathing treatment. Order noted and will carry out. Informed RT.
[2022-05-30] MEDS: ATORVASTATIN 20 MG TABLET PO SCH (20:57)
[2022-05-30] MEDS ORDERED: DOCUSATE SODIUM 250 MG CAPSULE PO SCH (21:00)
[2022-05-30] MEDS: ALBUTEROL SULFATE 2.5 MG/3 ML NEBU NEB PRN (21:49)
[2022-05-30] MEDS: IPRATROPIUM BROMIDE 0.5 MG/2.5 ML NEBU NEB PRN (21:49)
[2022-05-31] VITALS: BP 141/75
[2022-05-31 04:00] VITALS: BP 157/83
--- NOTE | 2022-05-31 05:45 | NUR ---
Patient slept well during the shift. No complain of pain or SOB. NSR on tele with HR of 81/min. Breathing treatment provided by RT and effective. O2 at 2LPM via NC. O2 sat at 98%. Needs attended to and met. Safety measure maintained and call light within reached.
[2022-05-31] MEDS: PANTOPRAZOLE SODIUM 40 MG TABLET.DR PO SCH (06:10)
[2022-05-31 07:27] LABS: HEMATOCRIT 34.7 % (31.2-41.9); MEAN CORPUSCULAR HEMOGLOBIN 28.8 uug (24.7-32.8); MEAN CORPUSCULAR VOLUME 89.2 fL (75.5-95.3); PLATELET COUNT (AUTO) 286 K/uL (179-408)
--- NOTE | 2022-05-31 07:45 | NUR ---
RECEIVED PATIENT IN BED AWAKE ALERT AND ORIENTED DENIES PAIN OR DISCOMFORTS AT THIS TIME ON O2 AT 2L/M BY NASAL CANULA HOB IS UP TELE IS SR.CALL LIGHT AND PERSONAL BELONGINGS ARE WITHIN EASY REACH AT THIS TIME WILL CONTINUE TO OBSERVE AND PROVIDE COMFORT.
[2022-05-31 08:00] LABS: BILIRUBIN,TOTAL 0.3 mg/dL (0.2-1.0); CREATININE 0.7 mg/dL (0.6-1.3); MAGNESIUM 1.8 mg/dL (1.8-2.4); PHOSPHOROUS 3.7 mg/dL (2.5-4.9); TOTAL PROTEIN, SERUM 6.3 g/dL (6.4-8.2)
[2022-05-31] MEDS: MULTIVITAMINS,THERAPEUTIC TABLET PO SCH (08:48)
[2022-05-31] MEDS: ASPIRIN 81 MG TAB.CHEW PO SCH (08:48)
[2022-05-31] MEDS: DILTIAZEM HCL CD 180 MG CAP.SR.24H PO SCH (08:49)
[2022-05-31] MEDS: REMEDY ESSENTIAL ZINC PASTE 113 GM TOP SCH ×2 (08:53→20:29)
[2022-05-31] MEDS: FLUTICASONE/VILANTEROL 1 EACH BLST.W.DEV INH SCH (09:31)
--- NOTE | 2022-05-31 10:00 | NUR ---
IV SITE INFILTERATED RESTARTED TO HER RIGHT FOREARM GAUGE 20 WITH 2 ATTEMPTS REMAIN ON IV ANTIBIOTICS AND SOLUMEDROL ORDERED WITH NO ADVERSE OR ALLERGIC REACTIONS AT THIS TIME.
[2022-05-31] MEDS: levoFLOXacin 500 MG/D5W 500 MG in PREMIXED 1 EACH IV SCH (10:22)
[2022-05-31] MEDS: methylPREDNISolone SOD SUCC 40 MG/ML VIAL IV SCH ×3 (10:33→21:07)
[2022-05-31 11:39] VITALS: BP 129/75
--- NOTE | 2022-05-31 12:03 | NUR ---
PATIENT SEEN AND EXAMINED BY DR GERMAIN WITH NEW ORDERS AND NOTED.
[2022-05-31] MEDS: ALBUTEROL SULFATE 2.5 MG/3 ML NEBU NEB PRN ×2 (13:35→22:59)
[2022-05-31] MEDS: IPRATROPIUM BROMIDE 0.5 MG/2.5 ML NEBU NEB PRN ×2 (13:35→22:59)
--- NOTE | 2022-05-31 13:37 | NUR ---
PATIENT IS REQUESTING FOR BREATHING TREATMENT RESPIRATORY THERAPY NOTIFIED PATIENT AWARE THAT DR GERMAIN ORDERED SPUTUM SPECIMEN CONTAINER PROVIDED AND PATIENT STATED LET ME KNOW WHEN SHE HAS IT AVAILABLE.
[2022-05-31 15:39] VITALS: BP 125/73
--- NOTE | 2022-05-31 18:00 | NUR ---
RESTING IN BED DENIES DISCOMFORTS HAS OCCASSIONAL COUGH ABLE TO SPOT UP OFFERED COUGH MEDICATION BUT SHE REFUSED AT THIS TIME MADE COMFORTABLE WILL OBSERVE.
--- NOTE | 2022-05-31 19:30 | NUR ---
Received patient lying in bed. AAOX4. In no acute distress. O2 at 2LPM via NC in placed. O2 sat at 94% at this time. No coughing noted. Denies any pain or SOB. IV site on right FA intact and patent. NSR on tele with HR of 93/min. Safety measure initiated and call light within reached.
[2022-05-31 20:00] VITALS: BP 136/71
[2022-05-31] MEDS: ATORVASTATIN 20 MG TABLET PO SCH (20:29)
[2022-05-31] MEDS: DOCUSATE SODIUM 100 MG CAPSULE PO SCH (20:29)
[2022-05-31] MEDS: GUAIFENESIN/DEXTROMETHORPHAN 5 ML UDC PO PRN (22:02)
[2022-06-01] VITALS: BP 137/75
[2022-06-01 03:58] VITALS: BP 143/93
--- NOTE | 2022-06-01 05:08 | NUR ---
NSR on tele with HR of 83/min. Remains on O2 at 2LPM via NC. O2 sat at 95%. Needs attended to and met. Safety measure maintained and call light within reached.
[2022-06-01] MEDS: methylPREDNISolone SOD SUCC 40 MG/ML VIAL IV SCH ×2 (06:07→13:11)
[2022-06-01] MEDS: PANTOPRAZOLE SODIUM 40 MG TABLET.DR PO SCH (06:07)
[2022-06-01 07:09] LABS: CREATININE 0.8 mg/dL (0.6-1.3); MAGNESIUM 1.9 mg/dL (1.8-2.4); PHOSPHOROUS 3.2 mg/dL (2.5-4.9); POTASSIUM 3.8 mmol/L (3.5-5.1)
[2022-06-01 07:49] LABS: HEMATOCRIT 37.8 % (31.2-41.9); MEAN CORPUSCULAR HEMOGLOBIN 28.1 uug (24.7-32.8); MEAN CORPUSCULAR VOLUME 89.4 fL (75.5-95.3); PLATELET COUNT (AUTO) 308 K/uL (179-408)
[2022-06-01] MEDS: REMEDY ESSENTIAL ZINC PASTE 113 GM TOP SCH (08:18)
[2022-06-01] MEDS: DILTIAZEM HCL CD 180 MG CAP.SR.24H PO SCH (08:18)
[2022-06-01] MEDS: ASPIRIN 81 MG TAB.CHEW PO SCH (08:18)
[2022-06-01] MEDS: MULTIVITAMINS,THERAPEUTIC TABLET PO SCH (08:18)
[2022-06-01] MEDS: FLUTICASONE/VILANTEROL 1 EACH BLST.W.DEV INH SCH (08:18)
[2022-06-01] MEDS: levoFLOXacin 500 MG/D5W 500 MG in PREMIXED 1 EACH IV SCH (10:12)
[2022-06-01 11:04] VITALS: BP 123/68
[2022-06-01] MEDS: GUAIFENESIN/DEXTROMETHORPHAN 5 ML UDC PO PRN (11:36)
[2022-06-01] MEDS: ALBUTEROL SULFATE 2.5 MG/3 ML NEBU NEB PRN (12:40)
[2022-06-01] MEDS: IPRATROPIUM BROMIDE 0.5 MG/2.5 ML NEBU NEB PRN (12:40)
[2022-06-01 15:42] VITALS: BP 132/63
[2022-06-01] MEDS ORDERED: LEVO500T90 PO (15:45)
[2022-06-01] MEDS ORDERED: ATOR10TA PO (15:45)
[2022-06-01] MEDS ORDERED: GUAI5SYR PO (15:45)
[2022-06-01] MEDS ORDERED: PRED2.5T PO (15:45)
[2022-06-01] MEDS ORDERED: IPRA0.2S6 NEB (15:45)
--- NOTE | 2022-06-01 16:21 | NUR ---
PT REFUSED TO TAKE THE SACRAL AREA REDNESS PICTURE ,PT SAID THEY WILL DO IT IN THE LONGTERM TRY TO EXPLAIN TO THE PT.,PT REFUSED. MADE AWARE
--- NOTE | 2022-06-01 17:07 | NUR ---
DC ORDERS RECEIVED NOTED AND CARRIED OUT,DC INSTRUCTION AND RN REPORT GIVEN TO THE [facility] ,PT LEFT THE FACILITY VIA AMBULANCES IN STABLE CONDITION
--- NOTE | 2022-06-01 17:46 | NUR ---
[facility] notified about mrsa nares result long term and md notified,
== END 2022-06-01 17:11 | DRG 190 ==
LOC: ER 08:54 → MEDSURG3 11:56 → TELE3 14:04 → MEDSURG3 06-01 07:50
PROVIDERS: ADMIT Internal Medicine; ATTEND Internal Medicine
DX: J43.9 Emphysema, unspecified (principal); E43 Unspecified severe protein-calorie malnutrition; I21.A1 Myocardial infarction type 2; S32.511A Fracture of superior rim of right pubis, initial encounter for closed fracture; N39.0 Urinary tract infection, site not specified; S70.01XA Contusion of right hip, initial encounter; W18.30XA Fall on same level, unspecified, initial encounter; Y92.129 Unspecified place in nursing home as the place of occurrence of the external cause; I25.2 Old myocardial infarction; E78.5 Hyperlipidemia, unspecified; I25.10 Atherosclerotic heart disease of native coronary artery without angina pectoris; Z20.822 Contact with and (suspected) exposure to COVID-19; Z87.891 Personal history of nicotine dependence; I70.0 Atherosclerosis of aorta; L98.9 Disorder of the skin and subcutaneous tissue, unspecified; Z79.899 Other long term (current) drug therapy; Z68.23 Body mass index [BMI] 23.0-23.9, adult; R26.89 Other abnormalities of gait and mobility; Z74.09 Other reduced mobility; E11.65 Type 2 diabetes mellitus with hyperglycemia; Z79.82 Long term (current) use of aspirin; Z86.16 Personal history of COVID-19; Z90.49 Acquired absence of other specified parts of digestive tract; Z95.5 Presence of coronary angioplasty implant and graft; Z96.642 Presence of left artificial hip joint; I11.9 Hypertensive heart disease without heart failure
CPT/HCPCS: 36415; 71045; 73502; 73700; 83735; 84100; 84484; 85025; 93005; 94640; 94664; 94760; A4663; G0378; J1956; J2920; J3590